=== PATIENT | female | born 1970 | race American Indian/Alaskan Native ===

== ENCOUNTER 2016-12-13 11:04 | Outpatient (CLI) | payer OTHER ==
--- NOTE | 2016-12-13 15:50 | Mammography Report ---
BILATERAL DIGITAL SCREENING MAMMOGRAM with CAD : 12/13/16 11:04:00 CLINICAL: Routine screening.Previously confirmed right breast cysts. COMPARISON:11/02/15 FINDINGS: The breasts are heterogeneously dense, which may obscure small masses.A previously confirmed right upper outer dominant cyst is smaller and additional cysts in both breasts are smaller.. No mass, architectural distortion or suspicious calcifications. IMPRESSION: No mammographic evidence of malignancy. Benign cysts. BI-RADS CATEGORY: 2 -- Benign RECOMMENDATION: Routine mammographic screening in one year. COMMENT: Patient follow-up letters are generated by our [email or web address] application.
== END 2016-12-13 11:05 | disposition home or self-care (01) ==
LOC: SPVWC 11:04
PROVIDERS: ATTEND Obstetrics & Gynecology
DX: Z12.31 Encounter for screening mammogram for malignant neoplasm of breast (principal)
CPT/HCPCS: 77067; G0202

== ENCOUNTER 2019-07-28 10:21 | Outpatient (CLI) | payer OTHER ==
--- NOTE | 2019-07-28 14:56 | Ultrasound Report ---
BILATERAL DIGITAL DIAGNOSTIC MAMMOGRAM WITH CAD 07/28/2019 RIGHT LIMITED BREAST ULTRASOUND INDICATION: Right BREAST LUMP. History of right breast cyst. TECHNIQUE: Digital bilateral mammographic imaging was performed. This examination was interpreted w ith the benefit of Computer-Aided Detection (CAD) analysis. COMPARISON: 12/13/2016 FINDINGS: Breast Density: The breasts are heterogeneously dense, which may obscure small masses. MAMMOGRAPHIC FINDINGS: A partially circumscribed right upper outer mass measures 5+ centimeters and c orrelates with the palpable lump. No other mass, architectural distortion or suspicious calcification s. ULTRASOUND FINDINGS: Targeted ultrasound evaluation was performed of the area of interest. Ultrasound of the upper outer right breast was performed and demonstrated a nontender cyst at 10:00 6 cm from t he nipple measuring 4.9 x 3.3 x 2.4 cm. It has a few low-level internal echoes. A second cyst at 9:00 3 cm from the nipple measures 8 x 6 x 5 mm. IMPRESSION: Benign cysts right breast. Follow up recommendation: Routine yearly BI-RADS Category 2: Benign. A "normal" or negative report should not discourage follow up or biopsy of a clinically significant f inding. A written summary of these findings will be mailed to the patient. The patient will be entered into a mammography reporting system which will generate a reminder letter for the patient's next appointmen t at the appropriate interval. According to the [employer], yearly mammograms are recommended starting at age 40 and continuing as long as a woman is in good health. Breast MRI is recommended for women with an rahul roximately 20-25% or greater lifetime risk of breast cancer, including women with a strong family his tory of breast or ovarian cancer and women who have been treated for Hodgkin's disease. Signer Name: Jonathan Villanueva MD Signed: 07/28/2019 2:52 PM Workstation Name: [id number]
== END 2019-07-28 10:22 | disposition home or self-care (01) ==
LOC: SPVWC 10:21
PROVIDERS: ATTEND Obstetrics & Gynecology
DX: N60.01 Solitary cyst of right breast (principal); N63.21 Unspecified lump in the left breast, upper outer quadrant
CPT/HCPCS: 77066

== ENCOUNTER 2020-08-16 13:11 | Outpatient (CLI) | payer OTHER ==
--- NOTE | 2020-08-18 08:43 | Mammography Report ---
DIGITAL SCREENING MAMMOGRAM WITH TOMOSYNTHESIS WITH CAD, 08/16/2020 CLINICAL INFORMATION / INDICATION: Routine Screening Mammography. TECHNIQUE: Digital bilateral 2D and 3D mammography with tomosynthesis was obtained in the craniocaud al and mediolateral oblique projections. Computer-Aided Detection (CAD) analysis was used for interp retation of this study. COMPARISON: 07/28/2019, 12/13/2016 FINDINGS: Breast Density: The breasts are heterogeneously dense, which may obscure small masses. No dominant mass, suspicious calcifications, or architectural distortion in either breast. The previously seen upper outer right breast cyst has resolved. IMPRESSION: No mammographic evidence of malignancy. Follow up recommendation: Routine yearly BI-RADS Category 1: Negative. A "normal" or negative report should not discourage follow up or biopsy of a clinically significant f inding. A written summary of these findings will be mailed to the patient. The patient will be entered into a mammography reporting system which will generate a reminder letter for the patient's next appointmen t at the appropriate interval. The [employer] recommends yearly mammograms starting at age 40 and continuing as l saurabh as a woman is in good health. Breast MRI is recommended for women with an approximate 20-25% or greater lifetime risk of breast cancer, including women with a strong family history of breast or ova louann cancer or who have been treated for Hodgkin's disease. Signer Name: Chapincito Ernst MD Signed: 08/18/2020 8:39 AM Workstation Name: [id number]
== END 2020-08-16 13:12 | disposition home or self-care (01) ==
LOC: SPVWC 13:11
PROVIDERS: ATTEND Surgery
DX: Z12.31 Encounter for screening mammogram for malignant neoplasm of breast (principal)
CPT/HCPCS: 77063; 77067